=== PATIENT | male | born 2000 | race Caucasian/White ===

== ENCOUNTER → 2022-01-21 15:11 | Outpatient (CLI) | payer OTHER, SELFPAY ==
--- NOTE | ~2022-01-21 | US_ITS ---
US soft tissue head and neck 01/21/2022 15:26 Indication: Breast lumps. Procedure: High-resolution Limited ultrasound of the neck Comparison: No prior studies for comparison. Findings: There are multiple bilateral enlarged cervical lymph nodes, largest in the right measuring 3.5 x 2 x 1 cm. Largest on the left measures 2.4 x 2.1 x 0.9 cm. Impression: 1: Bilateral cervical lymphadenopathy. These may be reactive, although other considerations such as l ymphoma should be considered. Recommend correlation with CT neck with contrast. Reviewed, dictated and finalized at location A.
--- NOTE | ~2022-01-21 | US_ITS ---
This report was recreated 02/07/2022. Original report was signed by Pankaj Newell M.D. on 01/21/2022 15:31 CDT US soft tissue head and neck 01/21/2022 15:26 Indication: neck lumps. Procedure: High-resolution Limited ultrasound of the neck Comparison: No prior studies for comparison. Findings: There are multiple bilateral enlarged cervical lymph nodes, largest in the right measuring 3.5 x 2 x 1 cm. Largest on the left measures 2.4 x 2.1 x 0.9 cm. Impression: 1: Bilateral cervical lymphadenopathy. These may be reactive, although other considerations such as lymphoma should be considered. Recommend correlation with CT neck with contrast. Reviewed, dictated and finalized at location A. Dictated By: Pankaj Newell MD 01/21/22 1529 Signed By: <Electronically signed by Pankaj Newell MD in [place]> MTDD
== END ==
PROVIDERS: PCP Internal Medicine
DX: R59.0 Localized enlarged lymph nodes (principal)
CPT/HCPCS: 76536

== ENCOUNTER 2023-12-10 10:43 | Emergency (ER) | payer OTHER, SELFPAY ==
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
[2023-12-10 10:52] VITALS: BP 129/90; PULSE 65; RESP 16; TEMP 36.7; O2SAT 97
--- NOTE | 2023-12-10 11:09 | PC.NURSE ---
PT DENIES ANY WEAKNESS, NUMBNESS, OR TINGLING TO EXTREMITIES.
== END 2023-12-10 11:10 | disposition short-term general hospital (02) ==
PROVIDERS: Emergency Provider Nurse Practitioner; PCP Internal Medicine
DX: M54.2 Cervicalgia (principal)
CPT/HCPCS: 99212; G0463; L0140

== ENCOUNTER 2023-12-10 11:28 | Emergency (ER) | payer OTHER, SELFPAY ==
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
[2023-12-10 11:31] VITALS: BP 123/84; PULSE 54; RESP 16; TEMP 36.3; O2SAT 100
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
[2023-12-10 13:16] VITALS: BP 131/71; PULSE 72; RESP 16; TEMP 36.6; O2SAT 99
== END 2023-12-10 13:18 | disposition home or self-care (01) ==
PROVIDERS: Emergency Provider Emergency Medicine; PCP Internal Medicine
DX: S19.9XXA Unspecified injury of neck, initial encounter (principal); V49.40XA Driver injured in collision with unspecified motor vehicles in traffic accident, initial encounter
CPT/HCPCS: 72040; 72072; 99283